=== PATIENT | female | born 1995 | race Caucasian/White ===

== ENCOUNTER 2018-02-02 02:33 | Emergency (ER) | payer OTHER, SELFPAY ==
[2018-02-02] MEDS ORDERED: HALOPERIDOL LACT 5 MG/ML INJ ONE (03:26)
[2018-02-02 03:34] LABS: Absolute Lymphocytes (CBC) 2.5 K/uL (0.7-4.9); Absolute Monocytes 0.7 K/uL (0.1-1.3); Basophils % 0.6 % (0-1.3); Eosinophils % 1.3 % (0-4.4); Hematocrit 40.7 % (36.0-45.0); Lymphocytes % 23.6 % (15.3-44.8); MCH 29.7 pg (27.0-35.0); MCV 85.8 fL (80-100); MPV 8.6 fL (7.6-11.3); Monocytes % 6.8 % (3.3-12.3); RBC Red Blood Cell Count 4.74 M/uL (3.86-4.86)
[2018-02-02 03:43] LABS: Urine Specific Gravity >1.030 (1.005-1.030)
[2018-02-02 03:43] LABS: Urine Blood 2+ (NEG); Urine Glucose NEGATIVE (NEG); Urine Protein 1+ (NEG); Urine Specific Gravity >1.030 (1.005-1.030); Urine pH 5.5 (5.0-7.0)
[2018-02-02 03:46] LABS: ALT/SGPT 13 U/L (12-78); AST/SGOT 10 U/L (15-37); Albumin 3.8 g/dL (3.4-5.0); Alkaline Phosphatase 73 U/L (45-117); BUN Blood Urea Nitrogen 8 mg/dL (7-18); Bicarbonate 22 mmol/L (21-32); Bilirubin Direct 0.1 mg/dL (0-0.2); Bilirubin Total 0.8 mg/dL (0.2-1.0); Glucose Level 104 mg/dL (74-106); Lipase 104 U/L (73-393); Potassium 3.5 mmol/L (3.5-5.1); Protein, Total 7.8 g/dL (6.4-8.2); Sodium Level 141 mmol/L (136-145)
[2018-02-02 03:56] LABS: Urine Amorphous Sediment 4+ /HPF (NONE SEEN); Urine Bacteria <20 /HPF (<20); Urine Culture Reflex Order NOT NEEDED
[2018-02-02 03:57] LABS: Urine RBC NONE SEEN /HPF (NONE SEEN)
[2018-02-02] MEDS ORDERED: NA CHLORIDE 0.9% 1,000 ML ONE (04:13)
--- NOTE | 2018-02-02 04:59 | EDPHYS ---
Physician Documentation [facility] Name: Trevor Cox Age: 22 yrs Sex: Female : 1995 Arrival Date: 02/02/2018 Time: 02:38 Bed 8 Private MD: ED Physician Rogelio Lopez HPI: 02/02 04:10 This 22 yrs old Female presents to ER via Ambulatory with complaints of gs abdominal pain. 04:10 The patient presents with abdominal pain that is diffuse. Onset: The symptoms/episode gs began/occurred 2 year(s) ago. Associated signs and symptoms: Pertinent positives: diarrhea, vomiting. The symptoms are described as crampy, intermittent. Modifying factors: The symptoms are alleviated by nothing, the symptoms are aggravated by nothing. Severity of pain: At its worst the pain was severe in the emergency department the pain is unchanged. The patient has experienced similar episodes in the past, chronically. The patient has been recently seen by a physician: Dr. sylvester. 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 - Social history:: Smoking status: Patient/guardian denies using tobacco. - Ebola Screening: : Patient negative for fever greater than or equal to 101.5 degrees Fahrenheit, and additional compatible Ebola Virus Disease symptoms Patient denies exposure to infectious person Patient denies travel to an Ebola-affected area in the 21 days before illness onset. ROS: 04:10 All other systems are negative. gs Exam: 04:10 Head/Face: Normocephalic, atraumatic. Eyes: Pupils equal round and reactive to light, gs extra-ocular motions intact. Lids and lashes normal. Conjunctiva and sclera are non-icteric and not injected. Cornea within normal limits. Periorbital areas with no swelling, redness, or edema. ENT: Nares patent. No nasal discharge, no septal abnormalities noted. Tympanic membranes are normal and external auditory canals are clear. Oropharynx with no redness, swelling, or masses, exudates, or evidence of obstruction, uvula midline. Mucous membranes moist. Neck: Trachea midline, no thyromegaly or masses palpated, and no cervical lymphadenopathy. Supple, full range of motion without nuchal rigidity, or vertebral point tenderness. No Meningismus. Chest/axilla: Normal chest wall appearance and motion. Nontender with no deformity. No lesions are appreciated. Cardiovascular: Regular rate and rhythm with a normal S1 and S2. No gallops, murmurs, or rubs. Normal PMI, no JVD. No pulse deficits. Respiratory: Lungs have equal breath sounds bilaterally, clear to auscultation and percussion. No rales, rhonchi or wheezes noted. No increased work of breathing, no retractions or nasal flaring. Back: No spinal tenderness. No costovertebral tenderness. Full range of motion. Skin: Warm, dry with normal turgor. Normal color with no rashes, no lesions, and no evidence of cellulitis. MS/ Extremity: Pulses equal, no cyanosis. Neurovascular intact. Full, normal range of motion. Neuro: Awake and alert, GCS 15, oriented to person, place, time, and situation. Cranial nerves II-XII grossly intact. Motor strength 5/5 in all extremities. Sensory grossly intact. Cerebellar exam normal. Normal gait. 04:10 Constitutional: The patient appears alert, awake. 04:10 Abdomen/GI: Palpation: mild abdominal tenderness, in all quadrants, rebound tenderness, is not appreciated. Vital Signs: 02:40 Weight 80.74 kg (R); Height 5 ft. 0 in. (152.40 cm) (R); Pain 9/10; fc 02:54 BP 143 / 77; Pulse 90; Resp 18; Temp 98.3(O); Pulse Ox 100% on R/A; ak1 04:00 BP 110 / 71; Pulse 69; Resp 16; Pulse Ox 97% ; bp 02:40 Body Mass Index 34.76 (80.74 kg, 152.40 cm) fc MDM: 02:55 Patient medically screened. gs 04:10 Differential diagnosis: cholecystitis, Cholelithiasis, gastroesophageal reflux disease, gs pancreatitis. Data reviewed: vital signs, nurses notes. Response to treatment: the patient's symptoms have markedly improved after treatment, and as a result, I will discharge patient. 04:58 Counseling: I had a detailed discussion with the patient and/or guardian regarding: the gs historical points, exam findings, and any diagnostic results supporting the discharge/admit diagnosis, the need for outpatient follow up. Response to treatment: the patient's condition has returned to base line. 02/02 02:56 Order name: Basic Metabolic Panel; Complete Time: 04:05 02/02 02:56 Order name: CBC with Diff; Complete Time: 04:05 02/02 02:56 Order name: Creatinine for Radiology; Complete Time: 04:05 02/02 02:56 Order name: Hepatic Function; Complete Time: 04:05 02/02 02:56 Order name: Lipase; Complete Time: 04:05 02/02 02:56 Order name: Urine Microscopic Only; Complete Time: 04:05 02/02 02:56 Order name: Urine Test (obtain specimen); Complete Time: 03:29 02/02 02:56 Order name: IV Saline Lock; Complete Time: 03:12 02/02 02:56 Order name: Labs collected and sent; Complete Time: 03:12 02/02 02:56 Order name: CT Stone Protocol 02/02 03:31 Order name: Urine Dipstick--Ancillary (enter results); Complete Time: 04:05 02/02 03:32 Order name: Urine --Ancillary (enter results); Complete Time: 04:05 02/02 02:56 Order name: Urine Dipstick-Ancillary (obtain specimen); Complete Time: 03:29 Administered Medications: 03:28 Drug: HALdol 2.5 mg Route: IVP; Site: right antecubital; ak1 04:08 Follow up: Response: No adverse reaction bp 04:12 Drug: NS 0.9% 1000 ml Route: IV; Rate: 1 bolus; Site: right antecubital; bp 05:13 Follow up: IV Status: Completed infusion ak1 Disposition: 02/02/18 04:59 Discharged to Home. Impression: Generalized abdominal pain, Chronic pain syndrome. - Condition is Stable. - Discharge Instructions: Abdominal Pain, Adult, Chronic Pain. - Medication Reconciliation Form, Thank You Letter, Antibiotic Education, Prescription Opioid Use form. - Follow up: Daniele Sylvester MD; When: 2 - 3 days; Reason: Re-evaluation by your physician. Signatures: Dispatcher [employer] EDMS Rahel Mejia RN RN Felicitas Willard RN RN ak1 Rogelio Lopez MD MD Lencho Joya RN RN bp Corrections: (The following items were deleted from the chart) 05:12 04:59 02/02/2018 04:59 Discharged to Home. Impression: Generalized abdominal pain; ak1 Chronic pain syndrome. Condition is Stable. Forms are Medication Reconciliation Form, Thank You Letter, Antibiotic Education, Prescription Opioid Use. Follow up: Daniele Sylvester; When: 2 - 3 days; Reason: Re-evaluation by your physician. gs
--- NOTE | 2018-02-02 04:59 | ER ---
Nurse's Notes [facility] Name: Trevor Cox Age: 22 yrs Sex: Female : 1995 Arrival Date: 02/02/2018 Time: 02:38 Bed 8 Private MD: Diagnosis: Generalized abdominal pain;Chronic pain syndrome Presentation: 02/02 02:40 Presenting complaint: Patient states: that she has been having abd pain, nausea, fc vomiting and diarrhea for years. It has gotten worse and now she is having "pure acid" stools and it is burning her "butt". She has seen Dr Ramirez but he did not prescribe her anything because she did not have any "health insurance". Now she does and she just needs to be fixed. Transition of care: patient was not received from another setting of care. Onset of symptoms was 2015. Risk Assessment: Do you want to hurt yourself or someone else? Patient reports no desire to harm self or others. Initial Sepsis Screen: Does the patient meet any 2 criteria? No. Patient's initial sepsis screen is negative. Does the patient have a suspected source of infection? No. Patient's initial sepsis screen is negative. Care prior to arrival: None. 02:40 Method Of Arrival: Ambulatory fc 02:40 Acuity: TAHRIA 3 fc Triage Assessment: 02:40 General: Appears uncomfortable, Behavior is cooperative, appropriate for age, crying. fc Pain: Complains of pain in abdomen Pain currently is 9 out of 10 on a pain scale. EENT: No deficits noted. Neuro: Level of Consciousness is awake, alert, obeys commands, Oriented to person, place, time, situation. Cardiovascular: No deficits noted. Respiratory: No deficits noted. GI: Abdomen is non-distended, Reports lower abdominal pain, upper abdominal pain, diarrhea, nausea, vomiting. : No deficits noted. Derm: Skin is pink, warm \\T\\ dry. Musculoskeletal: Circulation, motion, and sensation intact. Capillary refill < 3 seconds, Range of motion: intact in all extremities. 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 - Social history:: Smoking status: Patient/guardian denies using tobacco. - Ebola Screening: : Patient negative for fever greater than or equal to 101.5 degrees Fahrenheit, and additional compatible Ebola Virus Disease symptoms Patient denies exposure to infectious person Patient denies travel to an Ebola-affected area in the 21 days before illness onset. Screenin:56 Abuse screen: Denies threats or abuse. Nutritional screening: No deficits noted. fc Tuberculosis screening: No symptoms or risk factors identified. Fall Risk None identified. Assessment: 02:45 General: Appears distressed, comfortable, obese, Behavior is cooperative, appropriate bp for age, anxious. Pain: Complains of pain in buttocks and abdomen. Neuro: Level of Consciousness is awake, alert, obeys commands, Oriented to person, place, time, situation, Appropriate for age. Cardiovascular: No deficits noted. Respiratory: Airway is patent Respiratory effort is even, unlabored, Respiratory pattern is regular, symmetrical. GI: Abdomen is obese, Abd is soft X 4 quads. : No signs and/or symptoms were reported regarding the genitourinary system. EENT: No deficits noted. Derm: No deficits noted. Musculoskeletal: Circulation, motion, and sensation intact. Range of motion: intact in all extremities. 04:41 Reassessment: ALL CURRENT ORDERS COMPLETED, CT RESULTS PENDING. bp Vital Signs: 02:40 Weight 80.74 kg (R); Height 5 ft. 0 in. (152.40 cm) (R); Pain 9/10; fc 02:54 BP 143 / 77; Pulse 90; Resp 18; Temp 98.3(O); Pulse Ox 100% on R/A; ak1 04:00 BP 110 / 71; Pulse 69; Resp 16; Pulse Ox 97% ; bp 02:40 Body Mass Index 34.76 (80.74 kg, 152.40 cm) ED Course: 02:38 Patient arrived in ED. al2 02:40 Arm band placed on Patient placed in an exam room, on a stretcher. fc 02:41 Rogelio Lopez MD is Attending Physician. gs 02:49 Lencho Joya, KRISTIN is Primary Nurse. bp 02:53 Triage completed. fc 02:56 Patient has correct armband on for positive identification. Placed in gown. Bed in low fc position. Call light in reach. 03:12 Inserted saline lock: 22 gauge in right antecubital area, using aseptic technique. ak1 Blood collected. 04:13 CT completed. Patient tolerated procedure well. Patient moved to CT via wheelchair. Patient moved back from CT. 04:14 CT Stone Protocol In Process Unspecified. EDMS 04:58 Daniele Ramirez MD is Referral Physician. 05:10 No provider procedures requiring assistance completed. IV discontinued, intact, ak1 bleeding controlled, No redness/swelling at site. Pressure dressing applied. Administered Medications: 03:28 Drug: HALdol 2.5 mg Route: IVP; Site: right antecubital; ak1 04:08 Follow up: Response: No adverse reaction bp 04:12 Drug: NS 0.9% 1000 ml Route: IV; Rate: 1 bolus; Site: right antecubital; bp 05:13 Follow up: IV Status: Completed infusion ak1 Outcome: 04:59 Discharge ordered by . 05:12 Discharged to home ambulatory, with family. ak1 05:12 Condition: good 05:12 Discharge instructions given to patient, Instructed on discharge instructions, follow up and referral plans. Demonstrated understanding of instructions, follow-up care. 05:12 Patient left the ED. ak1 Signatures: Dispatcher [employer] Brendan Delatorre Felicia, RN RN fc Krenek, Amber, RN RN ak1 Rogelio Lopez MD MD gs Peltier, Brian, RN RN bp Love, Angelica al2
--- NOTE | 2018-02-02 09:04 | RAD REPORT ---
EXAM DESCRIPTION: CT - Stone Protocol - 02/02/2018 6:47 am CLINICAL HISTORY: Abdominal pain. Vomiting and diarrhea COMPARISON: 2014 TECHNIQUE: Computed axial tomography of the abdomen pelvis was obtained without oral or IV contrast. Lack of IV and oral contrast limits evaluation of solid organs, bowel, and vessels. Coronal reformat stephanie images were obtained and reviewed. A preliminary report was generated by [employer] and anaya bennett prior to this dictation All CT scans are performed using dose optimization technique as appropriate and may include automated exposure control or mA/KV adjustment according to patient size. FINDINGS: A renal calculus is not seen. An ureteral calculus is not noted. A bladder calculus is not present. The liver, spleen, pancreas and adrenals appear grossly normal. The gallbladder has been removed There is no evidence of diverticulitis. The appendix appears normal The wall of the ascending colon and proximal transverse colon appears mildly thickened. IMPRESSION: Negative for a genitourinary calculus The wall of the ascending colon and proximal transverse colon appears mildly thickened. This probably is secondary to incomplete distention. A mild colitis can also have this appearance and should be co rrelated clinically
== END 2018-02-02 05:12 | disposition home or self-care (01) ==
LOC: ER 02:33
DX: G89.4 Chronic pain syndrome (principal)
CPT/HCPCS: 36415; 74176; 76377; 80048; 80076; 81003; 81015; 81025; 83690; 85025; 96361; 96374; 99284; J1630; J7030

== ENCOUNTER 2018-08-17 06:13 | Emergency (ER) | payer BC, OTHER ==
--- OUTSIDE RECORDS SUMMARY | 2018-08-17 06:15 | XMS REPORT ---
:1995 [facility] Address [address] [place] [address] Dr. Ledesma [address] [place] [id number] Care Team Providers Name Role Phone Unavailable Unavailable Unavailable Problems This patient has no known problems. Allergies, Adverse Reactions, Alerts This patient has no known allergies or adverse reactions. Medications This patient has no known medications.
[2018-08-17 06:58] LABS: Absolute Lymphocytes (CBC) 3.2 K/uL (0.7-4.9); Absolute Monocytes 0.6 K/uL (0.1-1.3); Absolute Neutrophil 5.4 K/uL (1.8-8.0); Basophils % 1.2 % (0-1.3); Eosinophils % 2.9 % (0-4.4); Hematocrit 42.3 % (36.0-45.0); Lymphocytes % 33.4 % (15.3-44.8); MPV 9.4 fL (7.6-11.3); RBC Red Blood Cell Count 4.87 M/uL (3.86-4.86)
[2018-08-17] MEDS ORDERED: NA CHLORIDE 0.9% 1,000 ML ONE (07:04)
[2018-08-17] MEDS ORDERED: FAMOTIDINE 20 MG/2 ML VIAL IV ONE (07:04)
[2018-08-17 07:20] LABS: ALT/SGPT 16 U/L (12-78); AST/SGOT 12 U/L (15-37); Albumin 4.1 g/dL (3.4-5.0); Alkaline Phosphatase 67 U/L (45-117); BUN Blood Urea Nitrogen 13 mg/dL (7-18); Bicarbonate 25 mmol/L (21-32); Bilirubin Direct < 0.1 mg/dL (0-0.2); Bilirubin Total 0.2 mg/dL (0.2-1.0); Glucose Level 114 mg/dL (74-106); Lipase 103 U/L (73-393); Potassium 4.2 mmol/L (3.5-5.1); Sodium Level 139 mmol/L (136-145)
[2018-08-17] MEDS ORDERED: KETOROLAC 30 MG/ML INJ ONE (08:52)
[2018-08-17 09:31] LABS: Urine Blood NEGATIVE (NEG); Urine Glucose NEGATIVE (NEG); Urine Protein NEGATIVE (NEG); Urine Specific Gravity 1.015 (1.005-1.030)
--- NOTE | 2018-08-17 10:08 | RAD REPORT ---
EXAM DESCRIPTION: CT - Abdomen Pelvis W Contrast - 08/17/2018 9:39 am CLINICAL HISTORY: Chronic abdominal pain, recent elevation of pain in the mid and lower abdomen COMPARISON: CT study January 2018 TECHNIQUE: Biphasic, helical CT imaging of the abdomen and pelvis was performed following 100 ml non -ionic IV contrast. Oral contrast was given. All CT scans are performed using dose optimization technique as appropriate and may include automated exposure control or mA/KV adjustment according to patient size. FINDINGS: No suspicious findings in the lung bases. The liver, spleen, and pancreas show no suspicious findings. Cholecystectomy clips are present. No bi liary tree dilatation. Symmetric renal function is seen with no hydronephrosis or suspicious renal mass. No pyelonephritis o r acute parenchymal process. No bladder abnormalities. No adrenal abnormalities. No dilated bowel loops or bowel wall thickening. The appendix is normal. Oral contrast has reached th e distal rectum. Colon is not well-distended which limits CT ability to assess for mass. Wall thicken ing, edema or other active colon process is not suspected. No free air, free fluid or inflammatory st randing. No hernia, mass or bulky lymphadenopathy. Uterus and ovaries are normal range for patient age. No fallopian tube dilatation. No adnexal abnorma lity. No suspicious bony findings. IMPRESSION: Contrast enhanced CT abdomen and pelvis, as detailed above, shows no significant or susp icious finding.
--- NOTE | 2018-08-17 10:27 | EDPHYS ---
Physician Documentation [facility] Name: Trevor Cox Age: 22 yrs Sex: Female : 1995 Arrival Date: 08/17/2018 Time: 06:17 Bed 16 Private MD: ED Physician Kofi Hunt HPI: 08/17 07:05 This 22 yrs old Female presents to ER via Ambulatory with complaints of kb Abdominal Pain. 07:05 The patient presents with abdominal pain in the upper abdomen, in the left lower kb quadrant. Onset: The symptoms/episode began/occurred 2 week(s) ago, and became worse yesterday. The symptoms do not radiate. Associated signs and symptoms: Pertinent positives: constipation, Pertinent negatives: nausea and vomiting, anorexia, blood in stools, chest pain, diarrhea, dysuria, fever, headache, hematuria, nausea, palpitations, shortness of breath, vaginal discharge, vomiting, vomiting blood. The symptoms are described as constant. Modifying factors: The symptoms are alleviated by nothing, the symptoms are aggravated by nothing. Severity of pain: At its worst the pain was moderate in the emergency department the pain is unchanged. The patient has not experienced similar symptoms in the past. The patient has not recently seen a physician. Pt reports burning and a boiling sensation to colon and rectum, as well as, a bubbly sensation to upper abd. States she has had stomach issues for a long time, but this is different. States she hasn't had a BM in 7 days. . 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 - Social history:: Smoking status: Patient/guardian denies using tobacco, Patient/guardian denies using alcohol, street drugs. - Ebola Screening: : Patient negative for fever greater than or equal to 101.5 degrees Fahrenheit, and additional compatible Ebola Virus Disease symptoms Patient denies exposure to infectious person Patient denies travel to an Ebola-affected area in the 21 days before illness onset. ROS: 07:04 Constitutional: Negative for fever, chills, and weight loss, ENT: Negative for injury, kb pain, and discharge, Neck: Negative for injury, pain, and swelling, Cardiovascular: Negative for chest pain, palpitations, and edema, Respiratory: Negative for shortness of breath, cough, wheezing, and pleuritic chest pain, Back: Negative for injury and pain, : Negative for injury, bleeding, discharge, and swelling, MS/Extremity: Negative for injury and deformity, Skin: Negative for injury, rash, and discoloration, Neuro: Negative for headache, weakness, numbness, tingling, and seizure. 07:04 Abdomen/GI: Positive for abdominal pain, constipation, Negative for nausea, vomiting, and diarrhea. Exam: 07:05 Constitutional: This is a well developed, well nourished patient who is awake, alert, kb and in no acute distress. Head/Face: Normocephalic, atraumatic. Chest/axilla: Normal chest wall appearance and motion. Nontender with no deformity. No lesions are appreciated. Cardiovascular: Regular rate and rhythm with a normal S1 and S2. No gallops, murmurs, or rubs. Normal PMI, no JVD. No pulse deficits. Respiratory: Lungs have equal breath sounds bilaterally, clear to auscultation and percussion. No rales, rhonchi or wheezes noted. No increased work of breathing, no retractions or nasal flaring. Back: No spinal tenderness. No costovertebral tenderness. Full range of motion. Skin: Warm, dry with normal turgor. Normal color with no rashes, no lesions, and no evidence of cellulitis. MS/ Extremity: Pulses equal, no cyanosis. Neurovascular intact. Full, normal range of motion. Neuro: Awake and alert, GCS 15, oriented to person, place, time, and situation. Cranial nerves II-XII grossly intact. Motor strength 5/5 in all extremities. Sensory grossly intact. Cerebellar exam normal. Normal gait. 07:05 Abdomen/GI: Inspection: abdomen appears normal, Bowel sounds: normal, in all quadrants, Palpation: soft, in all quadrants, moderate abdominal tenderness, in the right upper quadrant and left upper quadrant. Vital Signs: 06:20 BP 139 / 79; Pulse 80; Resp 20; Temp 97.5(O); Pulse Ox 99% on R/A; Weight 77.11 kg (R); fc Height 5 ft. 0 in. (152.40 cm) (R); Pain 8/10; 07:20 BP 121 / 70; Pulse 85; Resp 16; Pulse Ox 98% on R/A; rb1 08:20 BP 129 / 83; Pulse 79; Resp 16; Pulse Ox 100% on R/A; Pain 8/10; rb1 09:20 BP 131 / 89; Pulse 82; Resp 16; Pulse Ox 99% on R/A; Pain 6/10; rb1 10:20 BP 129 / 79; Pulse 77; Resp 15; Pulse Ox 98% on R/A; rb1 06:20 Body Mass Index 33.20 (77.11 kg, 152.40 cm) fc MDM: 06:20 Patient medically screened. kb 07:03 Data reviewed: vital signs, nurses notes. Data interpreted: Pulse oximetry: on room air kb is 99 %. Interpretation: normal. 10:26 Counseling: I had a detailed discussion with the patient and/or guardian regarding: the kb historical points, exam findings, and any diagnostic results supporting the discharge/admit diagnosis, lab results, radiology results, the need for outpatient follow up, a family practitioner, a energy management specialist, to return to the emergency department if symptoms worsen or persist or if there are any questions or concerns that arise at home. ED course: Pt had BM after oral contrast, symptoms improved. Educated to follow up with Dr Ramirez (established patient). 08/17 06:35 Order name: Basic Metabolic Panel; Complete Time: 07:24 kb 08/17 06:35 Order name: CBC with Diff; Complete Time: 07:03 kb 08/17 06:35 Order name: Hepatic Function; Complete Time: 07:24 kb 08/17 06:35 Order name: Lipase; Complete Time: 07:24 kb 08/17 09:26 Order name: Urine Dipstick--Ancillary (enter results); Complete Time: 09:40 eb 08/17 09:26 Order name: Urine --Ancillary (enter results); Complete Time: 09:40 eb 08/17 06:35 Order name: IV Saline Lock; Complete Time: 06:59 kb 08/17 06:35 Order name: Labs collected and sent; Complete Time: 06:59 kb 08/17 06:35 Order name: CT Abd/Pelvis - W/Contrast; Complete Time: 10:18 kb 08/17 09:25 Order name: Urine Dipstick-Ancillary (obtain specimen); Complete Time: 09:25 rb1 08/17 09:25 Order name: Urine Test (obtain specimen); Complete Time: 09:25 rb1 Administered Medications: 06:58 Drug: NS 0.9% 1000 ml Route: IV; Rate: 1000 ml; Site: left antecubital; aa1 08:06 Follow up: IV Status: Completed infusion rb1 06:59 Drug: Pepcid 20 mg Route: IVP; Site: left antecubital; aa1 07:14 Follow up: Response: No adverse reaction rb1 08:40 Drug: TORadol 30 mg Route: IVP; Site: left antecubital; rb1 09:00 Follow up: Response: No adverse reaction; Pain is decreased rb1 Disposition: 13:59 Co-signature as Attending Physician, Kofi Hunt MD I agree with the assessment and kdr plan of care. Disposition: 08/17/18 10:27 Discharged to Home. Impression: Generalized abdominal pain, Constipation. - Condition is Stable. - Discharge Instructions: Constipation, Adult, [id number], Abdominal Pain, Adult, [id number]. - Prescriptions for Bentyl 20 mg Oral Tablet - take 1 tablet by ORAL route every 6 hours As needed; 20 tablet. Zofran 4 mg Oral Tablet - take 1 tablet by ORAL route every 6 hours As needed; 20 tablet. - Medication Reconciliation Form, Thank You Letter, Antibiotic Education, Prescription Opioid Use, School release form form. - Follow up: Emergency Department; When: As needed; Reason: Worsening of condition. Follow up: Private Physician; When: 2 - 3 days; Reason: Recheck today's complaints, Continuance of care, Re-evaluation by your physician. Signatures: Dispatcher [employer] Janie Gamboa FNP-C FNP-Marycruz Fiore, RN RN aa1 Kofi Hunt MD MD [facility] Rahel Mejia RN RN [place] RN RN rb1 Corrections: (The following items were deleted from the chart) 10:46 10:27 08/17/2018 10:27 Discharged to Home. Impression: Generalized abdominal pain; rb1 Constipation. Condition is Stable. Forms are Medication Reconciliation Form, Thank You Letter, Antibiotic Education, Prescription Opioid Use. Follow up: Emergency Department; When: As needed; Reason: Worsening of condition. Follow up: Private Physician; When: 2 - 3 days; Reason: Recheck today's complaints, Continuance of care, Re-evaluation by your physician. kb
--- NOTE | 2018-08-17 10:27 | ER ---
Nurse's Notes [facility] Name: Trevor Cox Age: 22 yrs Sex: Female : 1995 Arrival Date: 08/17/2018 Time: 06:17 Bed 16 Private MD: Diagnosis: Generalized abdominal pain;Constipation Presentation: 08/17 06:20 Presenting complaint: Patient states: that she has been having abd problems for years and sees Dr Ramirez. Then approx 1 week ago she started to have mid and lower abd "bubbling" with lots of gas. No BM x 1 week. Denies any nausea and vomiting. Pt is currently on Amoxil for dental abscess. Transition of care: patient was not received from another setting of care. Onset of symptoms was August 10, 2018. Risk Assessment: Do you want to hurt yourself or someone else? Patient reports no desire to harm self or others. Initial Sepsis Screen: Does the patient meet any 2 criteria? No. Patient's initial sepsis screen is negative. Does the patient have a suspected source of infection? No. Patient's initial sepsis screen is negative. Care prior to arrival: None. 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 - Social history:: Smoking status: Patient/guardian denies using tobacco, Patient/guardian denies using alcohol, street drugs. - Ebola Screening: : Patient negative for fever greater than or equal to 101.5 degrees Fahrenheit, and additional compatible Ebola Virus Disease symptoms Patient denies exposure to infectious person Patient denies travel to an Ebola-affected area in the 21 days before illness onset. Screenin:26 Abuse screen: Denies threats or abuse. Denies injuries from another. Nutritional aa1 screening: No deficits noted. Tuberculosis screening: No symptoms or risk factors identified. Fall Risk None identified. Assessment: 06:26 General: Appears in no apparent distress. uncomfortable, Behavior is cooperative, aa1 appropriate for age, anxious. Pain: Complains of pain in abdomen Quality of pain is described as burning, Pain began several years ago Is episodic. Neuro: Level of Consciousness is awake, alert, obeys commands, Oriented to person, place, time, situation, Moves all extremities. Full function Gait is steady. Respiratory: Airway is patent Respiratory effort is even, unlabored, Respiratory pattern is regular, symmetrical. GI: Abdomen is non-distended, Bowel sounds present X 4 quads. Abd is soft X 4 quads Reports upper abdominal pain, constipation, Patient currently denies nausea, vomiting. : No signs and/or symptoms were reported regarding the genitourinary system. EENT: No signs and/or symptoms were reported regarding the EENT system. Derm: Skin is intact, is healthy with good turgor, Skin is pink, warm \\T\\ dry. Musculoskeletal: Circulation, motion, and sensation intact. Capillary refill < 3 seconds. 07:00 General: Appears in no apparent distress. uncomfortable, Behavior is calm, cooperative. rb1 Pain: Complains of pain in abdomen Quality of pain is described as burning. Neuro: Level of Consciousness is awake, alert, obeys commands, Oriented to person, place, time, situation. Cardiovascular: Capillary refill < 3 seconds is brisk in bilateral fingers. Respiratory: Airway is patent Respiratory effort is even, unlabored, Respiratory pattern is regular, symmetrical. Derm: Skin is pink, warm \\T\\ dry. Musculoskeletal: Range of motion: intact in all extremities. 08:00 Reassessment: Patient appears in no apparent distress at this time. No changes from rb1 previously documented assessment. 08:52 Reassessment: Patient appears in no apparent distress at this time. Patient and/or rb1 family updated on plan of care and expected duration. Pain level reassessed. Patient is alert, oriented x 3, equal unlabored respirations, skin warm/dry/pink. 09:50 Reassessment: Patient appears in no apparent distress at this time. No changes from rb1 previously documented assessment. 10:44 Reassessment: Patient appears in no apparent distress at this time. Patient and/or rb1 family updated on plan of care and expected duration. Pain level reassessed. Patient is alert, oriented x 3, equal unlabored respirations, skin warm/dry/pink. Patient states feeling better. Vital Signs: 06:20 BP 139 / 79; Pulse 80; Resp 20; Temp 97.5(O); Pulse Ox 99% on R/A; Weight 77.11 kg (R); fc Height 5 ft. 0 in. (152.40 cm) (R); Pain 8/10; 07:20 BP 121 / 70; Pulse 85; Resp 16; Pulse Ox 98% on R/A; rb1 08:20 BP 129 / 83; Pulse 79; Resp 16; Pulse Ox 100% on R/A; Pain 8/10; rb1 09:20 BP 131 / 89; Pulse 82; Resp 16; Pulse Ox 99% on R/A; Pain 6/10; rb1 10:20 BP 129 / 79; Pulse 77; Resp 15; Pulse Ox 98% on R/A; rb1 06:20 Body Mass Index 33.20 (77.11 kg, 152.40 cm) fc ED Course: 06:17 Patient arrived in ED. es 06:20 Janie Chappell FNP-C is PHCP. kb 06:20 Luis Knapp MD is Attending Physician. kb 06:20 Arm band placed on Patient placed in an exam room, on a stretcher. fc 06:26 Patient has correct armband on for positive identification. Bed in low position. Call aa1 light in reach. Pulse ox on. NIBP on. 06:27 Triage completed. fc 06:40 Initial lab(s) drawn, by la, sent to lab. Inserted saline lock: 20 gauge in left aa1 antecubital area, using aseptic technique. Blood collected. 06:55 Kofi Hunt MD is Attending Physician. kb 07:21 Carey Schafer, KRISTIN is Primary Nurse. rb1 08:59 Radiology exam delayed due to test not completed at this time. ls3 09:43 CT Abd/Pelvis - W/Contrast In Process Unspecified. EDMS 09:57 CT completed. Patient tolerated procedure well. Patient moved back from CT. [id number] 10:46 No provider procedures requiring assistance completed. IV discontinued, intact, rb1 bleeding controlled, No redness/swelling at site. Pressure dressing applied. Administered Medications: 06:58 Drug: NS 0.9% 1000 ml Route: IV; Rate: 1000 ml; Site: left antecubital; aa1 08:06 Follow up: IV Status: Completed infusion rb1 06:59 Drug: Pepcid 20 mg Route: IVP; Site: left antecubital; aa1 07:14 Follow up: Response: No adverse reaction rb1 08:40 Drug: TORadol 30 mg Route: IVP; Site: left antecubital; rb1 09:00 Follow up: Response: No adverse reaction; Pain is decreased rb1 Outcome: 10:27 Discharge ordered by . kb 10:46 Patient left the ED. rb1 10:46 Discharged to home ambulatory, with family. rb1 10:46 Condition: stable 10:46 Discharge instructions given to patient, Instructed on discharge instructions, follow up and referral plans. medication usage, Demonstrated understanding of instructions, follow-up care, medications, Prescriptions given X 2. Signatures: Dispatcher [employer] Janie Gamboa, MEDICATION NURSE-C MEDICATION NURSE-CkMarycruz Luna RN RN aa1 Erendira Trejo Felicia, RN RN Carey Park RN RN rb1 Anna Cha Lynzie 3
== END 2018-08-17 10:46 | disposition home or self-care (01) ==
LOC: ER 06:13
DX: K59.00 Constipation, unspecified (principal); K21.9 Gastro-esophageal reflux disease without esophagitis
CPT/HCPCS: 36415; 74177; 80048; 80076; 81003; 81025; 83690; 85025; 96361; 96374; 96375; 99284; J7030; Q9967